=== PATIENT | female | born 1970 | race Two or more races ===

== ENCOUNTER → 2025-01-12 07:56 | Outpatient (CLI) | payer OTHER | END | disposition home or self-care (01) | LOC: NUCLEAR 07:56 | PROVIDERS: ATTEND Internal Medicine | DX: C50.811 Malignant neoplasm of overlapping sites of right female breast (principal) ==

== ENCOUNTER 2025-09-19 12:15 | Outpatient (CLI) | payer OTHER | END 2025-09-19 12:27 | disposition home or self-care (01) | LOC: MRI 12:15 | PROVIDERS: ATTEND Internal Medicine Gastroenterology | DX: R10.20 Pelvic and perineal pain unspecified side (principal); Z90.722 Acquired absence of ovaries, bilateral; M76.61 Achilles tendinitis, right leg | CPT/HCPCS: 73718 ==